=== PATIENT | female | born 2000 | race Caucasian/White ===

== ENCOUNTER 2022-07-16 15:01 | Emergency (ER) | payer OTHER ==
[2022-07-16 15:30] VITALS: TEMP 97.7
[2022-07-16 16:19] LABS: Amorphous Sediment,Urine Moderate /hpf; Appearance,Urine Cloudy (Clear); Bacteria,Urine Few /hpf; Bilirubin,Urine Negative (Negative); Blood,Urine Negative (Negative); Calcium Oxalate Crystals,Urine Occasional /hpf; Color,Urine Yellow; Glucose,Urine (UA) 3+ (Negative); Ketones,Urine Negative (Negative); Leukocyte Esterase,Urine Large (Negative); Mucus,Urine Moderate /hpf; Nitrite,Urine Negative (Negative); Protein,Urine Trace (Negative); RBC,Urine 2 /hpf (0-5); Specific Gravity,Urine 1.028 (1.001-1.035); Squamous Epithelial Cell,Urine 19 /hpf (0-4); Urobilinogen,Urine <2.0 mg/dL (<2.0); WBC,Urine 7 /hpf (0-5)
[2022-07-16] MEDS ORDERED: ALBUTEROL NEBULIZED 2.5 MG/3 ML INHALATION STA (16:24)
--- NOTE | 2022-07-16 17:19 | XR ---
EXAMINATION TYPE: XR chest 2V DATE OF EXAM: 07/16/2022 4:48 PM COMPARISON: None TECHNIQUE: XR chest 2V . CLINICAL INDICATION:Female, 21 years old with history of cough; FINDINGS: Lungs/Pleura: There is no evidence of pleural effusion, focal consolidation, or pneumothorax. Pulmonary vascularity: Unremarkable. Heart/mediastinum: Cardiomediastinal silhouette is unremarkable. Musculoskeletal: No acute osseous pathology. IMPRESSION: No acute cardiopulmonary disease/process.
--- NOTE | 2022-07-16 17:20 | ED ---
URI HPI - General Chief Complaint: Upper Respiratory Infection Stated Complaint: 16 weeks/ SOB, dizzy Time Seen by Provider: 07/16/22 16:05 Source: patient Mode of arrival: ambulatory Limitations: no limitations - History of Present Illness Initial Comments: Patient is a 21-year-old female currently 16 weeks presenting with chief complaint of cough. Patient states that symptoms started yesterday. She has history of childhood asthma, admits to some difficulty breathing. She admits to chills with no fevers. Patient admits to minor congestion. No sore throat, palpitations, lower abdominal pain, vaginal bleeding, headache, vision or hearing changes, swelling of the lower extremities. - Related Data Allergies Allergy/AdvReac Type Severity Reaction Status Date / Time No Known Allergies Allergy Verified 07/16/22 15:30 Review of Systems ROS Statement: Those systems with pertinent positive or pertinent negative responses have been documented in the HPI. ROS Other: All systems not noted in ROS Statement are negative. Past Medical History Past Medical History: Asthma History of Any Multi-Drug Resistant Organisms: None Reported Past Surgical History: Orthopedic Surgery Past Psychological History: No Psychological Hx Reported Smoking Status: Never smoker Past Alcohol Use History: None Reported Past Drug Use History: None Reported General Exam Limitations: no limitations General appearance: alert, in no apparent distress Head exam: Present: atraumatic, normocephalic, normal inspection Eye exam: Present: normal appearance, PERRL, EOMI. Absent: scleral icterus, conjunctival injection, periorbital swelling Neck exam: Present: normal inspection, full ROM Respiratory exam: Present: normal lung sounds bilaterally. Absent: respiratory distress, wheezes, rales, rhonchi, stridor Cardiovascular Exam: Present: regular rate, normal rhythm, normal heart sounds. Absent: systolic murmur, diastolic murmur, rubs, gallop, clicks Neurological exam: Present: alert, oriented X3, CN II-XII intact Psychiatric exam: Present: normal affect, normal mood Skin exam: Present: warm, dry, intact, normal color. Absent: rash Course Vital Signs 07/16/22 07/16/22 07/16/22 15:25 16:47 16:55 Temperature 97.7 F Pulse Rate 105 H 70 73 Respiratory 20 Rate Blood Pressure 120/70 O2 Sat by Pulse 99 Oximetry 07/16/22 18:19 Temperature Pulse Rate 90 Respiratory 18 Rate Blood Pressure 132/78 O2 Sat by Pulse 100 Oximetry Medical Decision Making - Medical Decision Making Patient is a 21-year-old female currently 16 weeks presenting with chief complaint of cough. Symptoms started yesterday. On examination or and lungs are clear to auscultation. Patient denies any abdominal pain or vaginal bleeding. Urine shows signs of contamination, will be sent for culture. Patient tested positive for influenza A. Chest x-ray shows no acute cardiopulmonary process, this is confirmed by my interpretation. Patient received nebulized of-year-old treatment here in the ER, report some improvement. Patient has nebulizer at home, will continue to use albuterol breathing treatments at home as needed. Instructed to take Tylenol as needed. Stay well hydrated and get plenty of rest. Follow-up with PCP. Report back to ER with any new or worsening symptoms. Discussed return parameters and answered all questions. Patient conveyed verbal understanding and agreed to the plan. I discussed this case in detail with my attending Dr. Moss - Lab Data Lab Results 07/16/22 07/16/22 Range/Units 15:45 16:33 Urine Color Yellow Urine Appearance Cloudy H (Clear) Urine pH 8.0 (5.0-8.0) Ur Specific [place] 1.028 (1.001-1.035) Urine Protein Trace H (Negative) Urine Glucose (UA) 3+ H (Negative) Urine Ketones Negative (Negative) Urine Blood Negative (Negative) Urine Nitrite Negative (Negative) Urine Bilirubin Negative (Negative) Urine Urobilinogen <2.0 (<2.0) mg/dL Ur Leukocyte Esterase Large H (Negative) Urine RBC 2 (0-5) /hpf Urine WBC 7 H (0-5) /hpf Ur Squamous Epith Cells 19 H (0-4) /hpf Calcium Oxalate Crystal Occasional H (None) /hpf Amorphous Sediment Moderate H (None) /hpf Urine Bacteria Few H (None) /hpf Urine Mucus Moderate H (None) /hpf Influenza Type A (PCR) Detected A (Not Detectd) Influenza Type B (PCR) Not Detected (Not Detectd) RSV (PCR) Not Detected (Not Detectd) SARS-CoV-2 (PCR) Not Detected (Not Detectd) Disposition Clinical Impression: Influenza A Disposition: HOME SELF-CARE Condition: Good Instructions (If sedation given, give patient instructions): Influenza (ED) Additional Instructions: Follow-up with PCP and [facility]. Take Tylenol as needed. Use albuterol breathing treatment as needed. Stay well-hydrated and get plenty of rest. Is patient prescribed a controlled substance at d/c from ED?: No Referrals: None,Stated [Primary Care Provider] - 1-2 days Time of Disposition: 18:02
[2022-07-16 18:21] VITALS: BP 132/78; PULSE 90; RESP 18
== END 2022-07-16 18:21 | disposition home or self-care (01) ==
LOC: EC 15:01
DX: O98.512 Other viral diseases complicating pregnancy, second trimester (principal); O99.512 Diseases of the respiratory system complicating pregnancy, second trimester; J10.1 Influenza due to other identified influenza virus with other respiratory manifestations; J45.909 Unspecified asthma, uncomplicated; Z20.822 Contact with and (suspected) exposure to COVID-19
CPT/HCPCS: 71046; 81001; 87636; 94640; 99285

== ENCOUNTER 2022-07-17 18:46 | Emergency (ER) | payer OTHER ==
[2022-07-17] MEDS ORDERED: ALBUTEROL NEBULIZED 2.5 MG/3 ML INHALATION STA (19:03)
[2022-07-17] MEDS ORDERED: SODIUM CHLORIDE 0.9% 1,000 ML IV ONE ×2 (19:03→20:11)
[2022-07-17 19:30] LABS: Appearance,Urine Cloudy (Clear); Bacteria,Urine Rare /hpf; Bilirubin,Urine Negative (Negative); Blood,Urine Small (Negative); Color,Urine Yellow; Glucose,Urine (UA) 4+ (Negative); Ketones,Urine 1+ (Negative); Leukocyte Esterase,Urine Negative (Negative); Mucus,Urine Occasional /hpf; Nitrite,Urine Negative (Negative); PH, Urine 5.5 (5.0-8.0); Protein,Urine Trace (Negative); RBC,Urine 3 /hpf (0-5); Specific Gravity,Urine 1.028 (1.001-1.035); Squamous Epithelial Cell,Urine 19 /hpf (0-4); Urobilinogen,Urine <2.0 mg/dL (<2.0); WBC,Urine 4 /hpf (0-5)
--- NOTE | 2022-07-17 20:21 | US ---
EXAMINATION TYPE: US venous doppler duplex LE DATE OF EXAM: 07/17/2022 8:04 PM COMPARISON: NONE CLINICAL HISTORY: tachycardia, mild swelling, . No hx of DVT. Patient is currently . SIDE PERFORMED: Bilateral TECHNIQUE: The lower extremity deep venous system is examined utilizing real time linear array sonog toan with graded compression, doppler sonography and color-flow sonography. VESSELS IMAGED: Common Femoral Vein Deep Femoral Vein Greater Saphenous Vein * Femoral Vein Popliteal Vein Small Saphenous Vein * Proximal Calf Veins (* superficial vessels) Right Leg: No evidence of DVT at this time. Patient could not tolerate compression of upper CFV due to pain. Left Leg: No evidence of DVT at this time. No defined fluid collections within the visualized soft tissues. IMPRESSION: No evidence for deep vein thrombosis of the right or left lower extremity.
[2022-07-17] MEDS ORDERED: DEXTROSE 5%-0.9% NACL 1,000 ML IV SCH ×2 (20:30→22:30)
[2022-07-17] MEDS ORDERED: ACETAMINOPHEN TAB 500 MG TAB PO STA (20:30)
[2022-07-17 20:54] LABS: Basophils % (A) 0 %; Eosinophils # (A) 0.1 k/uL (0-0.7); Eosinophils % (A) 2 %; HCT 32.1 % (34.0-46.0); HGB 11.4 gm/dL (11.4-16.0); Lymphocytes # (A) 0.3 k/uL (1.0-4.8); Lymphocytes % (A) 5 %; MCH 30.8 pg (25.0-35.0); MCHC 35.5 g/dL (31.0-37.0); MCV 86.7 fL (80.0-100.0); Monocytes # (A) 0.4 k/uL (0-1.0); Monocytes % (A) 7 %; Neutrophils # (A) 4.4 k/uL (1.3-7.7); Neutrophils % (A) 84 %; Platelet Count 125 k/uL (150-450); RDW 11.9 % (11.5-15.5); WBC 5.2 k/uL (4.0-11.0)
--- NOTE | 2022-07-17 21:01 | XR ---
EXAMINATION TYPE: XR chest 2V DATE OF EXAM: 07/17/2022 8:56 PM COMPARISON: Chest x-ray 07/16/2022 TECHNIQUE: XR chest 2V . CLINICAL INDICATION:Female, 21 years old with history of cough, fever, tachycardia; FINDINGS: Lungs/Pleura: There is no evidence of pleural effusion, focal consolidation, or pneumothorax. Pulmonary vascularity: Unremarkable. Heart/mediastinum: Cardiomediastinal silhouette is unremarkable. Musculoskeletal: No acute osseous pathology. IMPRESSION: No acute cardiopulmonary disease/process.
[2022-07-17 21:06] LABS: ALT 12 U/L (4-34); AST 22 U/L (14-36); African American GFR (CKD) >90 (>60 ml/min/1.73 sqM); Albumin 3.6 g/dL (3.5-5.0); Alkaline Phosphatase 49 U/L (38-126); Anion Gap 5 mmol/L; Blood Urea Nitrogen 3 mg/dL (7-17); Calcium 8.2 mg/dL (8.4-10.2); Carbon Dioxide 17 mmol/L (22-30); Chloride 107 mmol/L (98-107); Glucose 96 mg/dL (74-99); Non-African American GFR(CKD) >90 (>60 ml/min/1.73 sqM); Potassium 3.5 mmol/L (3.5-5.1); Sodium 129 mmol/L (137-145); Total Bilirubin 0.3 mg/dL (0.2-1.3)
[2022-07-17] MEDS ORDERED: OSELTAMIVIR 75 MG CAP PO STA (21:20)
--- NOTE | 2022-07-17 21:26 | ED ---
General Adult HPI - General Chief complaint: Nausea/Vomiting/Diarrhea Stated complaint: 16 weeks, Dehydration & Fever Time Seen by Provider: 07/17/22 18:59 Source: patient Mode of arrival: ambulatory Limitations: no limitations - History of Present Illness Initial comments: Patient is a 21-year-old female currently 16 weeks presenting after testing positive for influenza A yesterday. Patient states that she has been continuing to cough profusely at home. She has been using nebulized albuterol at home for symptoms. Patient states that there were a few times today where she was coughing so hard she was vomiting, this occurred 3-4 times today. She denies any abdominal pain or vaginal bleeding. Patient admits to chest discomfort with coughing. No chest pain at rest or difficulty breathing. She admits to fever, she took 1 g of Tylenol at 1:30 PM. No palpitations or weakness. No nausea. No neck pain or stiffness or vision or hearing changes. - Related Data Previous Rx's Medication Instructions Recorded Oseltamivir [Tamiflu] 75 mg PO Q12HR 5 Days #9 cap 07/17/22 Allergies Allergy/AdvReac Type Severity Reaction Status Date / Time No Known Allergies Allergy Verified 07/17/22 18:57 Review of Systems ROS Statement: Those systems with pertinent positive or pertinent negative responses have been documented in the HPI. ROS Other: All systems not noted in ROS Statement are negative. Past Medical History Past Medical History: Asthma History of Any Multi-Drug Resistant Organisms: None Reported Past Surgical History: Orthopedic Surgery Past Psychological History: No Psychological Hx Reported Smoking Status: Never smoker Past Alcohol Use History: None Reported Past Drug Use History: None Reported General Exam Limitations: no limitations General appearance: alert, in no apparent distress Head exam: Present: atraumatic, normocephalic, normal inspection Eye exam: Present: normal appearance ENT exam: Present: normal exam Neck exam: Present: normal inspection, full ROM Respiratory exam: Present: normal lung sounds bilaterally. Absent: respiratory distress, wheezes, rales, rhonchi, stridor Cardiovascular Exam: Present: normal rhythm, tachycardia, normal heart sounds. Absent: systolic murmur, diastolic murmur, rubs, gallop, clicks Neurological exam: Present: alert, oriented X3, CN II-XII intact Psychiatric exam: Present: normal affect, normal mood Skin exam: Present: warm, dry, intact, normal color. Absent: rash Course Vital Signs 07/17/22 07/17/22 07/17/22 18:55 19:23 19:44 Temperature 99.8 F H 99 F Pulse Rate 144 H 116 H 140 H Respiratory 18 18 Rate Blood Pressure 112/60 113/61 O2 Sat by Pulse 100 98 Oximetry 07/17/22 07/17/22 07/17/22 19:56 21:18 21:30 Temperature 99 F 99 F Pulse Rate 140 H 142 H Respiratory 16 Rate Blood Pressure 116/65 O2 Sat by Pulse 99 Oximetry 07/17/22 07/17/22 07/18/22 21:55 22:34 00:32 Temperature 98.8 F 98.9 F Pulse Rate 131 H 128 H 117 H Respiratory 18 16 15 Rate Blood Pressure 102/65 107/67 O2 Sat by Pulse 98 98 99 Oximetry EKG Findings - EKG Comments: EKG Findings:: Sinus tachycardia ventricular rate of 136. [place] interval 140. QRS 89. QT 331. QTC 410. EKG was interpreted by myself and my attending Medical Decision Making - Medical Decision Making Patient is a 21-year-old female currently 16 weeks presenting for evaluation after testing positive for influenza A yesterday. Patient started having symptoms about 48 hours ago. She is complaining of cough, fever, and vomiting. Patient explicitly states that she does not feel nauseous, however she has been coughing profusely which has caused her to vomit. She has decreased appetite and states she has not been drinking water today. She admits to fever, she took 1 g of Tylenol at home prior to reporting to the ER. On physical examination the patient is tachycardic and mildly febrile. She is giv en Tylenol, fluids, Tamiflu. Lab work indicates possible dehydration, sodium is 129 and 1+ urine ketones. Chest x-ray shows no acute cardiopulmonary process, also interpreted this x-ray. Ultrasound shows no evidence of DVT bilaterally. On reassessment patient's tachycardia is responding to fluids, heart rate has come down from 140s to 120s. Oxygen saturation has remained 98% or above at all times during her course. Additional fluids are ordered. Patient is continuing to deny any chest pain or difficulty breathing. heart tones are measured at 170bpm. Patient wishes to be discharged home today report back to ER with any new or worsening symptoms. She is of sound mind and body and able to make her own decisions. I believe this to be reasonable. I advised receiving an additional liter fluid bolus, patient declined at this time stating that she feels well and has a long drive home. Stressed the importance of follow-up with [facility] and PCP. Prescription for Tamiflu sent to the pharmacy. Stressed the importance of hydration. Provided with strict return parameters. Educated on supportive treatment with influenza, take Tylenol for fever and pain control. Follow-up with PCP. Report back to ER with any new or worsening symptoms. Discussed return parameters and answered all questions. Patient conveyed verbal understanding and agreed to the plan. I discussed this case in detail with my attending Dr. Francisco - Lab Data Result diagrams: 07/17/22 20:35 07/17/22 20:35 Lab Results 07/17/22 07/17/22 07/17/22 Range/Units 19:17 20:35 20:35 WBC 5.2 (4.0-11.0) k/uL RBC 3.70 L (3.80-5.40) m/uL Hgb 11.4 (11.4-16.0) gm/dL Hct 32.1 L (34.0-46.0) % MCV 86.7 (80.0-100.0) fL MCH 30.8 (25.0-35.0) pg MCHC 35.5 (31.0-37.0) g/dL RDW 11.9 (11.5-15.5) % Plt Count 125 L (150-450) k/uL MPV 10.0 Neutrophils % 84 % Lymphocytes % 5 % Monocytes % 7 % Eosinophils % 2 % Basophils % 0 % Neutrophils # 4.4 (1.3-7.7) k/uL Lymphocytes # 0.3 L (1.0-4.8) k/uL Monocytes # 0.4 (0-1.0) k/uL Eosinophils # 0.1 (0-0.7) k/uL Basophils # 0.0 (0-0.2) k/uL Sodium 129 L (137-145) mmol/L Potassium 3.5 (3.5-5.1) mmol/L Chloride 107 (98-107) mmol/L Carbon Dioxide 17 L (22-30) mmol/L Anion Gap 5 mmol/L BUN 3 L (7-17) mg/dL Creatinine 0.52 (0.52-1.04) mg/dL Est GFR (CKD-EPI)AfAm >90 (>60 ml/min/1.73 sqM) Est GFR (CKD-EPI)NonAf >90 (>60 ml/min/1.73 sqM) Glucose 96 (74-99) mg/dL Plasma Lactic Acid [place] (0.7-2.0) mmol/L Calcium 8.2 L (8.4-10.2) mg/dL Total Bilirubin 0.3 (0.2-1.3) mg/dL AST 22 (14-36) U/L ALT 12 (4-34) U/L Alkaline Phosphatase 49 (38-126) U/L Total Protein 6.0 L (6.3-8.2) g/dL Albumin 3.6 (3.5-5.0) g/dL Urine Color Yellow Urine Appearance Cloudy H (Clear) Urine pH 5.5 (5.0-8.0) Ur Specific [place] 1.028 (1.001-1.035) Urine Protein Trace H (Negative) Urine Glucose (UA) 4+ H (Negative) Urine Ketones 1+ H (Negative) Urine Blood Small H (Negative) Urine Nitrite Negative (Negative) Urine Bilirubin Negative (Negative) Urine Urobilinogen <2.0 (<2.0) mg/dL Ur Leukocyte Esterase Negative (Negative) Urine RBC 3 (0-5) /hpf Urine WBC 4 (0-5) /hpf Ur Squamous Epith Cells 19 H (0-4) /hpf Urine Bacteria Rare H (None) /hpf Urine Mucus Occasional H (None) /hpf 07/17/22 Range/Units 20:40 WBC (4.0-11.0) k/uL RBC (3.80-5.40) m/uL Hgb (11.4-16.0) gm/dL Hct (34.0-46.0) % MCV (80.0-100.0) fL MCH (25.0-35.0) pg MCHC (31.0-37.0) g/dL RDW (11.5-15.5) % Plt Count (150-450) k/uL MPV Neutrophils % % Lymphocytes % % Monocytes % % Eosinophils % % Basophils % % Neutrophils # (1.3-7.7) k/uL Lymphocytes # (1.0-4.8) k/uL Monocytes # (0-1.0) k/uL Eosinophils # (0-0.7) k/uL Basophils # (0-0.2) k/uL Sodium (137-145) mmol/L Potassium (3.5-5.1) mmol/L Chloride (98-107) mmol/L Carbon Dioxide (22-30) mmol/L Anion Gap mmol/L BUN (7-17) mg/dL Creatinine (0.52-1.04) mg/dL Est GFR (CKD-EPI)AfAm (>60 ml/min/1.73 sqM) Est GFR (CKD-EPI)NonAf (>60 ml/min/1.73 sqM) Glucose (74-99) mg/dL Plasma Lactic Acid Shahzad 1.0 (0.7-2.0) mmol/L Calcium (8.4-10.2) mg/dL Total Bilirubin (0.2-1.3) mg/dL AST (14-36) U/L ALT (4-34) U/L Alkaline Phosphatase (38-126) U/L Total Protein (6.3-8.2) g/dL Albumin (3.5-5.0) g/dL Urine Color Urine Appearance (Clear) Urine pH (5.0-8.0) Ur Specific [place] (1.001-1.035) Urine Protein (Negative) Urine Glucose (UA) (Negative) Urine Ketones (Negative) Urine Blood (Negative) Urine Nitrite (Negative) Urine Bilirubin (Negative) Urine Urobilinogen (<2.0) mg/dL Ur Leukocyte Esterase (Negative) Urine RBC (0-5) /hpf Urine WBC (0-5) /hpf Ur Squamous Epith Cells (0-4) /hpf Urine Bacteria (None) /hpf Urine Mucus (None) /hpf Disposition Clinical Impression: Influenza A, Dehydration Disposition: HOME SELF-CARE Condition: Fair Instructions (If sedation given, give patient instructions): Dehydration (ED), Influenza (ED) Additional Instructions: Follow-up with PCP and [facility]. Take Tylenol at home for fever and pain control. Report back to ER with any new or worsening symptoms. Prescriptions: Oseltamivir [Tamiflu] 75 mg PO Q12HR 5 Days #9 cap Is patient prescribed a controlled substance at d/c from ED?: No Referrals: None,Stated [Primary Care Provider] - 1-2 days
[2022-07-18 00:36] VITALS: BP 107/67; PULSE 117; RESP 15; TEMP 98.9
== END 2022-07-18 00:20 | disposition home or self-care (01) ==
LOC: EC 18:46
DX: O21.1 Hyperemesis gravidarum with metabolic disturbance (principal); J10.1 Influenza due to other identified influenza virus with other respiratory manifestations; J45.909 Unspecified asthma, uncomplicated; E07.9 Disorder of thyroid, unspecified; Z3A.16 16 weeks gestation of pregnancy
CPT/HCPCS: 36415; 71046; 80053; 81001; 83605; 85025; 93005; 93970; 94640; 96360; 96361; 99285